=== PATIENT | male | born 1970 | race Caucasian/White ===

== ENCOUNTER 2019-03-21 13:05 | Emergency (ER) | payer OTHER ==
[2019-03-21 13:23] VITALS: BP 133/85
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
[2019-03-21] MEDS ORDERED: IBUPROFEN 600 MG TABLET PO STA (14:12)
== END 2019-03-21 14:29 | disposition home or self-care (01) ==
LOC: ED 13:05
DX: S39.012A Strain of muscle, fascia and tendon of lower back, initial encounter (principal); M54.6 Pain in thoracic spine; V43.52XA Car driver injured in collision with other type car in traffic accident, initial encounter
CPT/HCPCS: 99283; A9270